=== PATIENT | male | born 1985 | race Hispanic/Latino ===

== ENCOUNTER 2019-09-25 12:17 | Emergency (ER) | payer SELFPAY ==
[2019-09-25] MEDS ORDERED: KETOROLAC TROMETHAMINE 60 MG/2 ML VIAL ONE (13:50)
[2019-09-25] MEDS ORDERED: CEFTRIAXONE SODIUM 1 GM ONE (15:39)
[2019-09-25] MEDS ORDERED: LIDOCAINE HCL-MPF 1% 2ML VIAL ONE (15:39)
== END 2019-09-25 16:24 | disposition home or self-care (01) ==
LOC: EDH 12:17
DX: S06.0X0A Concussion without loss of consciousness, initial encounter (principal); S02.652B Fracture of angle of left mandible, initial encounter for open fracture; Y04.2XXA Assault by strike against or bumped into by another person, initial encounter; Y93.89 Activity, other specified; Y92.29 Other specified public building as the place of occurrence of the external cause; Y99.8 Other external cause status
CPT/HCPCS: 70450; 70486; 96372 ×2; 99285; J0696; J1885; J3490

== ENCOUNTER 2022-03-20 13:33 | Emergency (ER) | payer OTHER ==
[~2022-03-20] VITALS: Ht 175.3 cm; Wt 84.8 kg
[2022-03-20 14:22] LABS: APPEARANCE,URINE CLEAR (CLEAR); BILIRUBIN,URINE NEGATIVE (NEGATIVE); COLOR,URINE YELLOW (YELLOW); GLUCOSE, URINE (UA) NEGATIVE (NEGATIVE); KETONES,URINE NEGATIVE (NEGATIVE); LEUKOCYTE ESTERASE ,URINE NEGATIVE (NEGATIVE); NITRATE,URINE NEGATIVE (NEGATIVE); OCCULT BLOOD,URINE NEGATIVE (NEGATIVE); PROTEIN,URINE NEGATIVE (NEGATIVE); UROBILINOGEN,URINE 0.2 mg/dL (0.2-1.0)
[2022-03-20] MEDS ORDERED: KETOROLAC 60 MG VIAL (30MG/ML) IM ONE (14:30)
[2022-03-20] MEDS ORDERED: CYCLOBENZAPRINE HCL 10 MG TABLET PO ONE (14:30)
[2022-03-20] MEDS ORDERED: CYCL10TA16 PO (14:58)
[2022-03-20] MEDS ORDERED: IBUP-2071 PO (14:58)
[2022-03-20 15:04] VITALS: BP 133/74
== END 2022-03-20 15:07 | disposition home or self-care (01) ==
LOC: EDH 13:33
DX: M54.50 Low back pain, unspecified (principal); I10 Essential (primary) hypertension; Z79.1 Long term (current) use of non-steroidal anti-inflammatories (NSAID)
CPT/HCPCS: 99284; 81003; 72100; 96372; J1885